=== PATIENT | female | born 1990 | race Caucasian/White ===

== ENCOUNTER 2020-03-09 15:43 | Emergency (ER) | payer OTHER, MEDICAID ==
[~2020-03-09] VITALS: Ht 165.1 cm; Wt 81.7 kg
[~2020-03-09 15:43] MED LIST: AMOXICILLIN875 MG PO; APAP/CODEI12 MG/5 ML OR; IBUPROFEN 800800 M1 PO; MEDROLDOSEPACK PO; NOHOMEMEDICATIONS
== END 2020-03-09 16:01 | disposition left against medical advice (07) ==
LOC: M.ERS 15:43
DX: Z53.21 Procedure and treatment not carried out due to patient leaving prior to being seen by health care provider (principal)